=== PATIENT | female | born 1990 | race Caucasian/White ===

== ENCOUNTER 2017-01-30 19:39 | Emergency (ER) | payer BC ==
[2017-01-30 19:56] VITALS: BP 127/81; PULSE 72; TEMP 97.9; BMI 31.8
--- NOTE | 2017-01-30 21:56 | PDOC ---
History of Present Illness - General Chief Complaint: Abscess Boil Stated Complaint: CYST Time Seen by Provider: 01/30/17 21:37 History Source: Patient Exam Limitations: No Limitations - History of Present Illness Initial Comments: 01/30/17 21:51 Chief complaint: Infection Patient is a healthy 26-year-old female with an ALLERGY to sulfa drugs states that she had a pimple on her right gonsales area that popped and was draining. Patient denies any fever. Patient states that this happened 3 days ago and it continues to drain, area was much more red around the area but she is concerned because it still has pus coming out GENERAL/CONSTITUTIONAL: No fever, weakness. dizziness HEAD, EYES, EARS, NOSE AND THROAT: No change in vision. No ear pain or discharge. No sore throat. CARDIOVASCULAR: No chest pain RESPIRATORY: No shortness of breath or cough GASTROINTESTINAL: No pain, nausea, vomiting, diarrhea or constipation GENITOURINARY: No dysuria MUSCULOSKELETAL: No neck or back pain SKIN: No rash, + skin infection NEUROLOGIC: No headache, vertigo, loss of consciousness, or loss of sensation. GENERAL: The patient is awake, alert, and fully oriented, in no acute distress. HEAD: Normal with no signs of trauma. EYES: Pupils equal, round and reactive to light, sclera anicteric, conjunctiva clear. ENT: pharynx: no erythema, no exudate, uvula midline NECK: supple CHEST: clear, nontender, rr ABD: soft, nontender EXTREMITIES: Right gonsales with scab, with mild erythema surrounding, tenderness, no fluctuance, otherwise extremities, normal range of motion, no edema. NEUROLOGICAL: Normal speech, normal gait. SKIN: Warm, Dry Past History - Past Medical History Allergies/Adverse Reactions: Allergies Allergy/AdvReac Type Severity Reaction Status Date / Time Sulfa (Sulfonamide Allergy Intermediate Rash Verified 01/30/17 19:56 Antibiotics) Home Medications: Ambulatory Orders Famotidine [Pepcid -] 20 mg PO BID #60 tablet 06/29/16 Oxycodone HCl/Acetaminophen [Percocet 5-325 mg Tablet] 1 - 2 tab PO Q6H #20 tab MDD 4 06/29/16 Acetaminophen W/ Codeine Liq [Tylenol W/Codeine Oral Solution -] 5 ml PO Q6H PRN #120 ml MDD 20ml 09/09/16 Doxycycline Hyclate 100 mg PO BID #14 capsule 01/30/17 Anemia: No Asthma: No Cancer: No Cardiac Disorders: No CVA: No COPD: No CHF: No Dementia: No Diabetes: No GI Disorders: No Disorders: No HTN: No Hypercholesterolemia: No Liver Disease: No Seizures: No Thyroid Disease: No - Surgical History Abdominal Surgery: Yes () Appendectomy: No Cardiac Surgery: No Cholecystectomy: No Gastric Stapling: Yes (sleeve 06/2016) Lung Surgery: No Neurologic Surgery: No Orthopedic Surgery: No - Reproductive History (#): 1 Para: 0 - Psycho/Social/Smoking Cessation Hx Suicidal Ideation: No Smoking History: Never smoked Have you smoked in the past 12 months: No Hx Alcohol Use: No Drug/Substance Use Hx: No Substance Use Type: None Hx Substance Use Treatment: No *Physical Exam - Vital Signs Last Vital Signs Temp Pulse Resp BP Pulse Ox 97.9 F 72 18 127/81 99 01/30/17 19:53 01/30/17 19:53 01/30/17 19:53 01/30/17 19:53 01/30/17 19:53 Procedures - Incision and Drainage I&D Site: Right: Leg Betadine cleansed: Yes Anesthesia: 2% Lidocaine Blade Size: 11 Attempts: 1 Plain Packing: No Complications: none Dressing: Yes Progress: 01/30/17 21:53 Scab unroofed after local anesthesia, and irrigated, small amount of pus blood *DC/Admit/Observation/Transfer Diagnosis at time of Disposition: Localized bacterial skin infection - Discharge Dispostion Disposition: HOME Condition at time of disposition: Stable Admit: No - Prescriptions Prescriptions: Doxycycline Hyclate 100 mg PO BID #14 capsule - Patient Instructions Printed Discharge Instructions: Skin Wound Additional Instructions: You can shower and irrigate this out in the shower or you can soak in the tub several times a day. Take the doxycycline twice daily for 7 days. Return if getting worse instead of better Apply bacitracin and dressing 1-2 times daily
== END 2017-01-30 22:09 | disposition home or self-care (01) ==
LOC: JERFT 19:39
PROC: 0H9KXZZ Drainage of Right Lower Leg Skin, External Approach (ICD-10-PCS; principal; 2017-01-30)
DX: L08.89 Other specified local infections of the skin and subcutaneous tissue (principal); B97.89 Other viral agents as the cause of diseases classified elsewhere
CPT/HCPCS: 99281-25

== ENCOUNTER 2018-09-06 12:57 | Emergency (ER) | payer BC, OTHER ==
[2018-09-06 13:28] VITALS: BP 133/82; PULSE 71; TEMP 98.3; BMI 31.4
--- NOTE | 2018-09-06 14:09 | PDOC ---
History of Present Illness - General Chief Complaint: Pain Stated Complaint: RT KNEE PAIN Time Seen by Provider: 09/06/18 13:56 History Source: Patient Exam Limitations: No Limitations - History of Present Illness Initial Comments: 09/06/18 14:04 28 yr female with c/o right knee pain s/p work injury last month. . Pt states she has constant pain and clicking to the knee. Pt recently 2 days felt a pull and click when lifting up her child. Pt in ER requesting an MRI. Pt is ambulatory no acute distress, no swelling or deformity. Severity: Yes: mild Lower Extremity Pain Location: right: knee Lower Ext. Injury Location - Specific Injury Location Knees: right no evidence of injury, right normal inspection, right pain ( medially and anterior to the knee ) Past History - Past Medical History Allergies/Adverse Reactions: Allergies Allergy/AdvReac Type Severity Reaction Status Date / Time Sulfa (Sulfonamide Allergy Intermediate Rash Verified 09/06/18 13:24 Antibiotics) Home Medications: Ambulatory Orders NK [No Known Home Medication] 09/06/18 Anemia: No Asthma: No Cancer: No Cardiac Disorders: No CVA: No COPD: No CHF: No Dementia: No Diabetes: No GI Disorders: No Disorders: No HTN: No Hypercholesterolemia: No Liver Disease: No Seizures: No Thyroid Disease: No Other medical history: DENIES. - Surgical History Abdominal Surgery: Yes () Appendectomy: No Cardiac Surgery: No Cholecystectomy: No Gastric Stapling: Yes (sleeve 06/2016) Lung Surgery: No Neurologic Surgery: No Orthopedic Surgery: No - Reproductive History (#): 1 Para: 0 - Suicide/Smoking/Psychosocial Hx Smoking History: Never smoked Have you smoked in the past 12 months: No Hx Alcohol Use: No Drug/Substance Use Hx: No Substance Use Type: None Hx Substance Use Treatment: No Review of Systems - Review of Systems Able to Perform ROS?: Yes Is the patient limited Kazakh proficient: No Constitutional: No: Symptoms Reported HEENTM: No: Symptoms Reported Musculoskeletal: Yes: Symptoms Reported *Physical Exam - Vital Signs Last Vital Signs Temp Pulse Resp BP Pulse Ox 98.3 F 71 17 133/82 100 09/06/18 13:24 09/06/18 13:24 09/06/18 13:24 09/06/18 13:24 09/06/18 13:24 - Physical Exam General Appearance: Yes: Nourished, Appropriately Dressed HEENT: positive: EOMI, JUAN A Extremity: positive: Normal Capillary Refill, Normal Inspection, Normal Range of Motion, Tender (medially with standing ). 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 intact, Fully Oriented, Alert, Normal Mood/ Affect, Normal Response, Motor Strength 5/5 Deep Tendon Reflexes: Knee (L): 2+, Knee (R): 2+ Procedures - Splinting Pre-Made Type: knee immobilizer (right) ED Treatment Course - RADIOLOGY Radiology Studies Ordered: Category Date Time Status KNEE 3 POS-RIGHT [RAD] Stat Radiology 09/06/18 14:02 Ordered Medical Decision Making - Medical Decision Making 09/06/18 14:09 cc: right knee injury at work last month, pt has been seen by her PMD given anit -inflamatory pt states 2 days ago she lifted her son and felt a crack, heard a crack pt ambulating freely pain with standing, neg laxity neg ttp on the anterior joint line, neg effusion will get xray knee immobilizer I have discussed with patient that she needs to see orthopedist to refer to MRI MRI is not clinically indicated in the ER at this time. *DC/Admit/Observation/Transfer Diagnosis at time of Disposition: Right knee injury Qualifiers: Encounter type: initial encounter Qualified Code(s): S89.91XA - Unspecified injury of right lower leg, initial encounter - Discharge Dispostion Disposition: HOME Condition at time of disposition: Good - Referrals Referrals: Oj Schwarz MD [Staff Physician] - Tonie Tiwari MD [Primary Care Provider] - - Patient Instructions Additional Instructions: follow with 's office the orthopedist use the knee immobilizer while awake remove to sleep and bathe remove to apply ice every 2hrs for 20 minutes to the knee for the next 2 days while awake take anti-inflammatory for pain - Post Discharge Activity
== END 2018-09-06 14:31 | disposition home or self-care (01) ==
LOC: JERFT 12:57
PROC: 2W3QX1Z Immobilization of Right Lower Leg using Splint (ICD-10-PCS; principal; 2018-09-06)
DX: S89.91XA Unspecified injury of right lower leg, initial encounter (principal); X58.XXXA Exposure to other specified factors, initial encounter; Y93.89 Activity, other specified; Y92.9 Unspecified place or not applicable
CPT/HCPCS: 73562-TC-RT-FY; 99281-25

== ENCOUNTER 2018-10-03 09:14 | Day surgery (SDC) | payer OTHER ==
[2018-09-26 14:41] VITALS: BMI 31.4
[2018-10-03] MEDS ORDERED: BACITRACIN 15 GM TUBE TOPICAL OINTMENT ONE (11:14)
[2018-10-03] MEDS ORDERED: BUPIVACAINE HCL/PF 2.5 MG/ML - 30 ML VIAL IJ ONE (11:14)
[2018-10-03] MEDS ORDERED: PROPOFOL 20 ML ONE (11:51)
[2018-10-03] MEDS ORDERED: MIDAZOLAM HCL 2 MG/2 ML SINGLE DOSE VIAL ONE (11:51)
[2018-10-03] MEDS ORDERED: SODIUM CHLORIDE 0.9% P/F 10 ML VIAL IJ ONE (11:52)
[2018-10-03] MEDS ORDERED: LIDOCAINE HCL/PF 2% SDV 5ML VIAL ONE (11:52)
[2018-10-03] MEDS ORDERED: DEXAMETHASONE SOD PHOSPHATE 4 MG/1 ML VIAL ONE (11:52)
[2018-10-03] MEDS ORDERED: ONDANSETRON 4 MG/2 ML VIAL ONE ×2 (11:52→13:32)
[2018-10-03] MEDS ORDERED: ceFAZolin SODIUM 1 GM VIAL ONE (11:52)
[2018-10-03] MEDS ORDERED: ONDANSETRON 4 MG/2 ML VIAL IVPUSH PRN (12:52)
[2018-10-03] MEDS ORDERED: ACETAMINOPHEN 325 MG TABLET (FP) PO PRN (12:52)
[2018-10-03] MEDS ORDERED: oxyCODONE HCL 5 MG TABLET PO PRN (12:52)
--- NOTE | 2018-10-03 12:57 | OP ---
Operative Note - Note: Operative Date: 10/03/18 Pre-Operative Diagnosis: right knee MMT Operation: right knee arthroscopy with partial medial meniscectomy Post-Operative Diagnosis: Same as Pre-op Surgeon: Jones Marte Anesthesiologist/POLE CLASSIFIER: Isaak Briones Anesthesia: General Operative Report Dictated: Yes
[2018-10-03] MEDS ORDERED: LACTATED RINGERS SOLUTION 1,000 ML IV SCH (13:00)
[2018-10-03] MEDS ORDERED: ONDANSETRON 4 MG/2 ML VIAL IVPUSH ONE (13:28)
--- NOTE | 2018-10-03 14:27 | OP ---
DATE OF OPERATION: DATE OF DICTATION: 10/03/2018 POSTOPERATIVE DIAGNOSIS: Right medial meniscal tear. POSTOPERATIVE DIAGNOSIS: Right medial meniscal tear. PROCEDURE: Right knee arthroscopy with partial medial meniscectomy. SURGEON: Jones Marte MD ANESTHESIA: General. POSTOPERATIVE CONDITION: Stable. COMPLICATIONS: None. INDICATIONS: This is a pleasant 28-year-old female who suffered injury to her knee and had medial pain. She was found to have medial meniscal tear on MRI. Treatment options including nonoperative versus operative management were reviewed. Operative risks were reviewed in detail including bleeding, infection, neurovascular injury, need for further surgery, postoperative pain and stiffness, progression of osteoarthritis. We discussed the medical risks such as heart attack, stroke, DVT, PE, and . I addressed the use of perioperative antibiotic and DVT prophylaxis. I addressed all of the patient's questions and concerns. We reviewed the postoperative rehabilitation course. She voiced understanding and elected to proceed. DESCRIPTION OF PROCEDURE: The patient was brought to the operating room after administration of general anesthesia. The right lower extremity was prepped and draped in the usual sterile fashion. A preoperative dose of antibiotics was given, and the usual time-out procedure was performed. Examination of the right knee demonstrated full range of motion, mild effusion, and good stability. The port sites were then marked out and injected subcutaneously with 0.25% Marcaine. An 11 blade was now used to establish the lateral portal. The arthroscope was passed into the patellofemoral joint. Examination of the patellofemoral joint demonstrated no significant articular lesions. Passing the arthroscope into the notch demonstrated intact ACL and PCL. The arthroscope was passed into the medial compartment. Here a medial portal was established under spinal needle localization. The medial meniscus was now seen to be complexly torn across its posterior horn and into the body. There was a displaced flap along the body, which was folded over itself. Utilizing a combination of meniscal biters and a shaver, this was debrided down to a stable base. The arthroscope was then passed into the lateral compartment. Here, the meniscus was seen to be unremarkable. There was some subtle fissuring in the tibial articular surface, but no loose flaps. The femoral articular surface was unremarkable. The arthroscope was now passed back into the patellofemoral joint. Excess fluid was withdrawn from the joint. The portals were sutured using 3-0 nylon. A sterile dressing was placed. The patient was extubated and transferred to the recovery room in stable condition. Katharine PAREKH/[id number]
[2018-10-03 14:43] VITALS: TEMP 98.1
[2018-10-03] MEDS ORDERED: oxyCODONE HCL 5 MG TABLET ONE (14:45)
[2018-10-03 16:09] VITALS: PULSE 86
[2018-10-03 16:11] VITALS: BP 122/80
== END 2018-10-03 15:50 | disposition home or self-care (01) ==
LOC: FASU 09:14
PROVIDERS: ATTEND Orthopaedic Surgery Sports Medicine
PROC: 0SBC4ZZ Excision of Right Knee Joint, Percutaneous Endoscopic Approach (ICD-10-PCS; principal; 2018-10-03 12:19)
DX: S83.241A Other tear of medial meniscus, current injury, right knee, initial encounter (principal); X58.XXXA Exposure to other specified factors, initial encounter; Y93.9 Activity, unspecified; Y92.9 Unspecified place or not applicable
CPT/HCPCS: 84703; 94760

== ENCOUNTER 2023-05-20 14:14 | Day surgery (SDC) | payer BC, OTHER ==
[2023-05-20 14:58] VITALS: RESP 18; TEMP 97.6
[2023-05-20] MEDS ORDERED: FERRIC CARBOXYMALTOSE 750 MG in SODIUM CHLORIDE 250 ML IVPB ONE (15:00)
[2023-05-20 15:36] VITALS: BP 124/72; PULSE 65
== END 2023-05-20 15:38 | disposition home or self-care (01) ==
LOC: FINFUSION 14:14 → FM/S 14:18 → FINFUSION 15:38
PROVIDERS: ATTEND Family Medicine
PROC: 3E033GC Introduction of Other Therapeutic Substance into Peripheral Vein, Percutaneous Approach (ICD-10-PCS; principal; 2023-05-20)
DX: D50.9 Iron deficiency anemia, unspecified (principal); E61.1 Iron deficiency
CPT/HCPCS: 96365; J1439

== ENCOUNTER 2023-05-28 14:07 | Day surgery (SDC) | payer BC, OTHER ==
[2023-05-28] MEDS ORDERED: FERRIC CARBOXYMALTOSE 750 MG in SODIUM CHLORIDE 250 ML IVPB ONE (15:00)
[2023-05-28 15:34] VITALS: BP 118/70; PULSE 78; RESP 19; TEMP 98.9
== END 2023-05-28 16:03 | disposition home or self-care (01) ==
LOC: FINFUSION 14:07 → FM/S 14:15 → FINFUSION 16:03
PROVIDERS: ATTEND Family Medicine
PROC: 3E033GC Introduction of Other Therapeutic Substance into Peripheral Vein, Percutaneous Approach (ICD-10-PCS; principal; 2023-05-28)
DX: D50.9 Iron deficiency anemia, unspecified (principal)
CPT/HCPCS: 81025; 96365; J1439